=== PATIENT | male | born 1980 ===

== ENCOUNTER 2017-08-29 11:50 | Emergency (ER) | payer OTHER ==
[2017-08-29 12:37] VITALS: TEMP 98.6; O2SAT 98
--- NOTE | 2017-08-29 13:06 | ED PDOC ---
HPI: CCC, URI, Sore Throat Time Seen by Provider: 08/29/17 12:28 Chief Complaint (Nursing): Flu-like Symptoms Chief Complaint (Provider): Fever, Runny Nose, Cough History Per: Patient History/Exam Limitations: no limitations Onset/Duration Of Symptoms: Days (x 4) Current Symptoms Are (Timing): Still Present Additional Complaint(s): Rayo is a 37 y/o male who presents to the ED c/o subjective fever, runny nose, cough, headache and pleuritic chest pain since Sunday. Patient has not taken any medication for his symptoms. He denies sore throat, sputum, nausea, vomiting , or abdominal pain. PMD: None Past Medical History Reviewed: Historical Data, Nursing Documentation, Vital Signs Vital Signs: Last Vital Signs Temp 98.6 F 08/29/17 12:30 Pulse 91 H 08/29/17 12:30 Resp 20 08/29/17 12:30 BP 157/109 H 08/29/17 12:30 Pulse Ox 98 08/29/17 14:17 - Medical History PMH: No Chronic Diseases - Family History Family History: States: Unknown Family Hx - Social History Current smoker - smoking cessation education provided: No - Home Medications Home Medications: Ambulatory Orders Medication Instructions Recorded Loratadine [Claritin] 10 mg PO DAILY PRN #5 tab 08/29/17 - Allergies Allergies/Adverse Reactions: Allergies Allergy/AdvReac Type Severity Reaction Status Date / Time No Known Allergies Allergy Verified 08/29/17 12:30 Review of Systems ROS Statement: Except As Marked, All Systems Reviewed And Found Negative Constitutional: Positive for: Fever (subjective) ENT: Positive for: Nose Discharge, Nose Congestion. Negative for: Throat Pain Cardiovascular: Positive for: Chest Pain (pleuritic) Respiratory: Positive for: Cough. Negative for: Sputum Gastrointestinal: Negative for: Nausea, Vomiting, Abdominal Pain Neurological: Positive for: Headache Physical Exam - Reviewed Nursing Documentation Reviewed: Yes Vital Signs Reviewed: Yes - Physical Exam Appears: Positive for: Well, No Acute Distress Skin: Positive for: Normal Color, Warm, DRY Eye Exam: Positive for: Normal appearance ENT: Positive for: Pharyngeal Erythema, Tonsillar Exudate Neck: Positive for: Normal, Painless ROM, Supple Cardiovascular/Chest: Positive for: Regular Rate, Rhythm. Negative for: Chest Non Tender (Bilateral chest wall tenderness), Murmur Respiratory: Positive for: Normal Breath Sounds. Negative for: Wheezing, Respiratory Distress Gastrointestinal/Abdominal: Positive for: Normal Exam, Bowel Sounds, Soft. Negative for: Tenderness Extremity: Positive for: Normal ROM Neurologic/Psych: Positive for: Alert, Oriented - ECG O2 Sat by Pulse Oximetry: 98 (RA) Pulse Ox Interpretation: Normal Medical Decision Making Medical Decision Making: Time: 12:51 Initial Impression: Viral Syndrome, UTI Initial Plan: --EKG --Chest XR --Flu Swab --Rapid Strep Time: 13:05 --Flu and strep negative --Throat culture ordered CHEST XR FINDINGS: LUNGS: No active pulmonary disease. PLEURA: No significant pleural effusion identified. No pneumothorax apparent. CARDIOVASCULAR: Probable top-normal heart size OSSEOUS STRUCTURES: No significant abnormalities. VISUALIZED UPPER ABDOMEN: Normal. OTHER FINDINGS: None. IMPRESSION: No active disease. Scribe Attestation: Documented by Corbin Stephen, acting as a scribe for Imelda Garcia MD Provider Scribe Attestation: All medical record entries made by the Scribe were at my direction and personally dictated by me. I have reviewed the chart and agree that the record accurately reflects my personal performance of the history, physical exam, medical decision making, and the department course for this patient. I have also personally directed, reviewed, and agree with the discharge instructions and disposition. Disposition - Clinical Impression Clinical Impression: URI (upper respiratory infection), Elevated blood pressure reading - Disposition Referrals: [facility] [Outside] Disposition: Routine/Home Disposition Time: 14:15 Condition: STABLE Prescriptions: Loratadine [Claritin] 10 mg PO DAILY PRN #5 tab PRN Reason: Allergy Symptoms Instructions: Upper Respiratory Infection (ED), Hypertension (ED) Forms: [employer] (Persian) Print Language: URDU
--- NOTE | 2017-08-29 13:17 | RAD ---
HISTORY: Cough COMPARISON: No prior. TECHNIQUE: Chest PA and lateral FINDINGS: LUNGS: No active pulmonary disease. PLEURA: No significant pleural effusion identified. No pneumothorax apparent. CARDIOVASCULAR: Probable top-normal heart size OSSEOUS STRUCTURES: No significant abnormalities. VISUALIZED UPPER ABDOMEN: Normal. OTHER FINDINGS: None. IMPRESSION: No active disease.
[2017-08-29 17:01] VITALS: BP 132/90; PULSE 90; RESP 18
--- NOTE | 2017-08-31 18:39 | CARD ---
APPROVED REPORT EKG Measurement Heart [id number] NH 166P [id number] <Conclusion> Normal sinus rhythm Right axis deviation Cannot rule out Anterior infarct, age undetermined ST & T wave abnormality, consider inferior ischemia Abnormal ECG
== END 2017-08-29 15:25 | disposition home or self-care (01) ==
LOC: H.ER 11:50
DX: N39.0 Urinary tract infection, site not specified (principal)